=== PATIENT | female | born 1965 ===

== ENCOUNTER 2019-09-15 05:55 | Day surgery (SDC) | payer OTHER ==
[~2019-09-15 05:55] MED LIST: ASPIR 8181 MG PO; TOPROL XL100 M1 PO
[2019-09-15] MEDS ORDERED: MACROBID 100 M100 MG PO (08:38)
[2019-09-15] MEDS ORDERED: ULTRACET PO (08:39)
== END 2019-09-15 12:25 | disposition home or self-care (01) ==
LOC: CIR.AMB 05:55 → ADM 12:00 → CIR.AMB 12:25
PROVIDERS: ATTEND Obstetrics & Gynecology Gynecology
DX: N39.3 Stress incontinence (female) (male) (principal); N36.41 Hypermobility of urethra
CPT/HCPCS: 57110; 57288; C1771